=== PATIENT | female | born 1940 | race Caucasian/White ===

== ENCOUNTER 2017-02-24 15:25 | Emergency (ER) | payer MEDICARE, BC ==
[~2017-02-24] VITALS: Ht 154.9 cm; Wt 45.8 kg
--- NOTE | 2017-02-24 15:32 | NUR ---
PT BIBRA TO ER BED 10 C/O R SHOULDER PAIN S/P MECHANICAL TRIP AND FALL. POSSIBLE DISLOCATION. PT DENIES HEAD TRAUMA. NO KO. PLACED ON MONITOR. STABLE VITALS. AWAITING MD GAY.
--- NOTE | 2017-02-24 15:59 | NUR ---
DR HAWLEY AT BEDSIDE FOR EVAL.
[2017-02-24] MEDS ORDERED: MORPHINE SULFATE INJ 2 MG/ML DISP.SYRIN ONE ×2 (16:03→17:39)
[2017-02-24] MEDS ORDERED: ONDANSETRON 4 MG TAB.RAPDIS ONE (16:04)
--- NOTE | 2017-02-24 16:05 | NUR ---
RADIOLOGY AT BEDSIDE FOR RT SHOULDER AND CHEST XRAY.
[2017-02-24] MEDS ORDERED: ONDANSETRON 4 MG TAB.RAPDIS SL ONE (16:30)
[2017-02-24] MEDS ORDERED: MORPHINE SULFATE INJ 2 MG/ML DISP.SYRIN IM ONE (16:30)
[2017-02-24] MEDS ORDERED: HYDROCODONE/APAP 5/325MG 1 EACH TABLET ONE (17:11)
[2017-02-24] MEDS ORDERED: HYDROCODONE/APAP 5/325MG 1 EACH TABLET PO ONE (17:30)
[2017-02-24] MEDS ORDERED: MORPHINE SULFATE INJ 2 MG/ML DISP.SYRIN IV ONE (18:00)
--- NOTE | 2017-02-24 18:40 | NUR ---
PT SPLINTED AND PROVIDED W/ SHOULDER SLING. AMBULATORY W/ STEADY GAIT. Patient discharged to home in stable condition. Written and verbal after care instructions given. Patient verbalizes understanding of instruction.IV removed. Catheter intact and site benign. Pressure and 4x4 applied to site. No bleeding noted.
[2017-02-24 18:41] VITALS: BP 132/76
== END 2017-02-24 18:42 | disposition home or self-care (01) ==
LOC: ER 15:28
DX: S42.211A Unspecified displaced fracture of surgical neck of right humerus, initial encounter for closed fracture (principal); W01.198A Fall on same level from slipping, tripping and stumbling with subsequent striking against other object, initial encounter; Y93.89 Activity, other specified; Y92.89 Other specified places as the place of occurrence of the external cause; Y99.8 Other external cause status; I10 Essential (primary) hypertension; M19.90 Unspecified osteoarthritis, unspecified site; C50.912 Malignant neoplasm of unspecified site of left female breast; S50.811A Abrasion of right forearm, initial encounter
CPT/HCPCS: 71010-TC; 73030-TC; A4606; J2270; Q0162; Z7610